=== PATIENT | female | born 1950 | race Caucasian/White ===

== ENCOUNTER → 2016-10-29 | Outpatient (CLI) | payer OTHER, MEDICARE ==
[~2016-10-29] MED LIST: ATEN-173 PO; LEVO112T2 PO
== END | disposition home or self-care (01) ==
LOC: C.PAPS 14:11
PROVIDERS: ATTEND Obstetrics & Gynecology
DX: Z12.4 Encounter for screening for malignant neoplasm of cervix (principal)

== ENCOUNTER → 2016-11-12 | Outpatient (CLI) | payer OTHER, MEDICARE ==
--- NOTE | 2016-11-12 17:12 | MAMMOGRAPHY REPORT ---
BILATERAL DIGITAL SCREENING MAMMOGRAM TOMOSYNTHESIS WITH CAD: 11/12/2016 CLINICAL HISTORY: Routine screening. Patient has no complaints. TECHNIQUE: Breast tomosynthesis in addition to standard 2D mammography was performed. Current study was also evaluated with a Computer Aided Detection (CAD) system. COMPARISON: Comparison is made to exams dated: 10/31/2015 mammogram, 06/02/2014 mammogram, 04/20/2013 mammogram, 11/13/2015 ultrasound, 02/27/2012 mammogram, and 01/27/2011 mammogram - [facility]. BREAST COMPOSITION: The tissue of both breasts is heterogeneously dense, which may obscure small ma sses. FINDINGS: There are stable benign-appearing microcalcifications within the right breast. A right ML O asymmetry in the superior posterior breast is no longer identified, confirming normal overlapping tissue. No new suspicious mass, architectural distortion or cluster of microcalcifications is seen. IMPRESSION: ACR BI-RADS CATEGORY 1: NEGATIVE There is no mammographic evidence of malignancy. A 1 year screening mammogram is recommended. The p atient will receive written notification of the results. Approximately 10% of breast cancers are not detected with mammography. A negative mammographic repor t should not delay biopsy if a clinically suggestive mass is present. Maame Woods M.D. ay/:11/12/2016 17:05:34 Library Aide: Urmila COLLAZO)(M), [facility] letter sent: Normal 1/2 BI-RADS Code: ACR BI-RADS Category 1: Negative
== END | disposition home or self-care (01) ==
LOC: C.MAMM 13:02
PROVIDERS: ATTEND Obstetrics & Gynecology
DX: Z12.31 Encounter for screening mammogram for malignant neoplasm of breast (principal)

== ENCOUNTER 2017-05-31 12:00 | Emergency (ER) | payer OTHER, MEDICARE ==
[~2017-05-31] VITALS: Ht 167.6 cm; Wt 62.7 kg
[2017-05-31 12:02] VITALS: Ht 167.6 cm; Wt 62.7 kg
[2017-05-31] MEDS ORDERED: SODIUM CHLORIDE 0.9% 1000ML 500 ML IV STA (12:25)
[2017-05-31] MEDS ORDERED: SODIUM CHLORIDE 0.9% 1000ML 1,000 ML IV STA (12:25)
[2017-05-31 13:17] LABS: BASO % 0.1 %; BASO ABS # 0.01 K/uL (0-0.2); COMPLETE YES; EOS % 0.1 %; IG% 0.5 %; LYMPH % 5.1 %; LYMPH ABS # 0.56 K/uL (1.2-3.4); MEAN CELL VOLUME 91.5 fL (80-100); MEAN PLATELET VOLUME 11.3 fL (7.4-10.4); MONO % 4.7 %; NEUT % 89.5 %; PLATELET COUNT 196 K/uL (130-400); RED BLOOD COUNT 4.37 M/uL (4.2-5.4); WHITE BLOOD COUNT 10.92 K/uL (4.8-10.8)
[2017-05-31 13:37] LABS: BUN/CREATININE RATIO 17.2 (10-20); CALCIUM 8.9 mg/dl (8.5-10.1); CREATININE 0.72 mg/dl (0.60-1.20); POTASSIUM 3.7 mmol/L (3.5-5.1)
[2017-05-31 13:38] LABS: URINE APPEARANCE CLOUDY (CLEAR); URINE COLOR DK YELLOW; URINE EPITHELIAL CELL AUTO >30 /lpf (0-5); URINE NITRITE NEG (NEG); URINE SPECIFIC GRAVITY 1.022 (1.000-1.030); UROBILINOGEN NEG (NEG)
--- NOTE | 2017-05-31 13:38 | DIAGNOSTIC IMAGING REPORT ---
ABDOMEN 2VIEW W/PA CHEST RTN HISTORY: 67 years-old Female acute abdominal pain. COMPARISON: None available. TECHNIQUE: Frontal view of the chest with erect and supine views of the abdomen FINDINGS: Cardiac silhouette is upper limits of normal. No pneumothorax, large pleural effusion or focal airspace consolidation. There is mild blunting of the costophrenic angles suggesting atelectasis or trace effusions. Subsegmental atelectasis or scarring involve the lateral left lung base. There is atherosclerosis of the aorta. Moderate volume of pneumoperitoneum is seen. The bowel gas pattern is nonobstructive. No portal venous gas or pneumatosis identified. There is moderate volume of formed stool within the rectosigmoid. No urolithiasis or fracture seen. Degenerative changes involve the hips and lower lumbar spine. IMPRESSION: 1. Moderate volume of pneumoperitoneum is present without evidence of bowel obstruction compatible with perforated viscus without history of recent surgery. Further evaluation with emergent contrast-enhanced CT abdomen and pelvis recommended to further evaluate. 2. No acute cardiopulmonary process. The above report was generated using voice recognition software. It may contain grammatical, syntax or spelling errors. Electronically signed by: Ariel Chavez M.D. 05/31/2017 1:37 PM Dictated Date/Time: 05/31/2017 1:33 PM
[2017-05-31] MEDS ORDERED: PIPERACILLIN/TAZOBACTAM 4.5 GM/100ML D5W IV STA (13:44)
[2017-05-31 13:45] LABS: MANUAL MICROSCOPIC REQUIRED? NO; REVIEW REQ? YES; URINE BILIRUBIN NEG (NEG)
--- NOTE | 2017-05-31 13:47 | EMERGENCY ROOM VISIT NOTE ---
ED Visit Note First contact with patient: 12:07 The patient was seen and examined with Margie Irby. I agree with the history , physical and findings. Please see the note for disposition and details. The patient has perforated diverticulitis with abscess. Antibiotics administered. Consultation made with general surgery. The patient was evaluated and it was felt that transfer would be in best interest of the patient. [facility] was contacted. The patient was accepted. The patient was transferred for further management.
[2017-05-31 13:48] LABS: ALB/GLOB RATIO 0.7 (0.9-2); THYROID STIMULATING HORMONE 0.489 uIu/ml (0.300-4.500)
[2017-05-31 13:51] LABS: URINE MUCUS PRESENT (NONE PRSENT)
[2017-05-31] MEDS ORDERED: OPTIRAY 320 IV PRN (14:00)
--- NOTE | 2017-05-31 14:49 | DIAGNOSTIC IMAGING REPORT ---
ABD/PELVIS IV CONTRAST ONLY HISTORY: 67 years-old Female pneumoperitoneum identified on comparison radiographs COMPARISON: Radiograph 05/31/2017 TECHNIQUE: Multiple axial CT images of the abdomen and pelvis were obtained utilizing 93 mL Optiray 320. A dose lowering technique was used consistent with the principals of BEATA. FINDINGS: There is mild dependent bibasilar atelectasis. The imaged cardiac chambers are unremarkable. The liver, spleen, pancreas and right adrenal gland are unremarkable. There is mild nodular thickening of the left adrenal gland suggesting hyperplasia. Gallbladder is unremarkable. Kidneys and left ureter are unremarkable. Mild dilation of the distal right ureter, likely reactive from pelvic disease as described below. Urinary bladder is unremarkable. Uterus appears normal in size. There is extensive pneumoperitoneum identified throughout the abdomen and pelvis. There is mild atherosclerotic plaquing of the abdominal aorta. Scattered nonenlarged nonspecific periaortic adenopathy is seen. There is no bowel obstruction. Moderate volume of formed stool involves the sigmoid colon. There is limited evaluation of the bowel without oral contrast. There are extensive inflammatory changes with trace ascites and mesenteric edema throughout the lower abdomen and pelvis which is centered about the mid sigmoid colon which demonstrates wall thickening with multiple colonic diverticula. There is a focal collection containing air, fluid and complex debris within the right hemipelvis, 5.5 x 3.6 x 4.0 cm suggesting abscess. Additional locules of the abscess are seen on image 268 and 298 for example Air-fluid leveling within the cecum and several loops of terminal ileum are likely reactive ileus formation. Appendix noted on image 260 of the axial series and appears normal. Soft tissues are unremarkable. Bones appear intact. There is mild convex left curvature of the lumbar spine. 6 mm anterolisthesis L3 on L4 is likely secondary to background severe facet arthropathy. IMPRESSION: 1. Extensive pneumoperitoneum with findings most compatible with acute complicated sigmoid diverticulitis with multiloculated abscess of the right lower pelvis measuring up to 5.5 cm. Evaluation of the bowel is somewhat limited without the use of oral contrast. 2. Reactive ileus involves the distal ileum without obstruction. 3. No pneumatosis identified. 4. Normal CT appearance of the appendix. The above report was generated using voice recognition software. It may contain grammatical, syntax or spelling errors. Electronically signed by: Ariel Chavez M.D. 05/31/2017 2:48 PM Dictated Date/Time: 05/31/2017 2:33 PM
--- NOTE | 2017-05-31 15:34 | Surgery Consultation ---
Consultation Date of Consultation: May 31, 2017. Attending Physician: Reason for Consultation: Pneumoperitoneum, abdominal pain History of Present Illness Cecily South is a 67 year old woman with hypertension and hypothyroidism who presents to the ED with 3 days of abdominal pain. Patient states she has been out of town with her family, and has been eating a different diet than her usual. Also states she hasn't been drinking as much fluid, and hasn't had a BM in approximately 5 days. She notes she had transient chills on , which resolved. On Thursday, she began having crampy low abdominal pain, which was reported to be 10/10 at its worst; the pain eventually improved to about a 5/10 , but did not resolve. The pain has been continuous, and she therefore presented to the ED for evaluation. Denies any nausea or vomiting associated with the pain. She has been tolerating small amounts of food over the past few days, but notes a low appetite. Patient denies headache, vision changes, chest pain, SOB, recent weight loss / gain, dysuria or urinary problems, melena / hematochezia, pain / numbness / swelling / tingling in extremities. She has never had any abdominal or thoracic operations in the past. Surgery was consulted by the ER after pneumoperitoneum was seen on the CXR. On exam, patient is lying comfortably in bed, vitals stable and normal. Abdomen is somewhat distended, but soft, and only mildly tender to palpation; no rebound / guarding. Last colonoscopy was approximately 9 years ago, reported by the patient to be normal; she is due for another next year. States she does not ever remember being told she has diverticulosis, has never had any episodes of diverticulitis. She has never had an EGD. She has never had heartburn or symptoms of GERD. She takes an Aspirin 81mg daily, but no other NSAID use reported. Denies smoking history, occasional alcohol use. Past Medical/Surgical History Medical History: Hypertension Hypothyroidism Surgical History: No thoracic or abdominal operations Family History Heart disease Hypertension Social History Smoking Status: Never Smoker Marital Status: Housing Status: lives alone Occupation Status: unemployed Allergies Coded Allergies: Prednisone (Verified Allergy, Unknown, ., 05/31/17) Sulfa Antibiotics (Verified Allergy, Unknown, ., 05/31/17) Home Medications Scheduled Atenolol (Tenormin), 25 MG PO QPM Levothyroxine Sodium (Synthroid), 112 MCG PO DAILY Current Inpatient Medications Current Inpatient Medications Medications (Trade) Dose Ordered Sig/Gautam Route Start Time Stop Time Status Last Admin Dose Admin Sodium Chloride 1,000 ml @ 250 mls/hr Q4H STAT IV 05/31/17 12:25 05/31/17 16:24 05/31/17 12:25 250 MLS/HR Ioversol (Optiray 320) 111 ml UD PRN IV 05/31/17 14:00 06/04/17 13:59 Review of Systems Constitutional: + chills (3 days ago, none recent), + fatigue, No fever Eyes: No worsening of vision, No eye pain Respiratory: No cough, No shortness of breath, No dyspnea on exertion Cardiovascular: No chest pain Abdomen: + pain, + constipation, No nausea, No vomiting Musculoskeletal: No swelling Genitourinary - Female: No dysuria, No urinary frequency, No urinary urgency Physical Exam Date Time Temp Pulse Resp B/P (MAP) Pulse Ox O2 Delivery O2 Flow Rate FiO2 05/31/17 14:35 86 05/31/17 14:33 89 16 142/85 96 05/31/17 12:02 36.9 83 16 129/81 96 Room Air General Appearance: WD/WN, no apparent distress Head: normocephalic Eyes: normal inspection Neck: supple Respiratory/Chest: lungs clear, normal breath sounds, no respiratory distress Cardiovascular: regular rate, rhythm Abdomen/GI: soft, + tenderness (mild tenderness to palpation in RLQ), + distended Skin: normal color, warm/dry, no rash Laboratory Results Last 24 Hours Test 05/31/17 12:50 White Blood Count 10.92 K/uL Red Blood Count 4.37 M/uL Hemoglobin 14.4 g/dL Hematocrit 40.0 % Mean Corpuscular Volume 91.5 fL Mean Corpuscular Hemoglobin 33.0 pg Mean Corpuscular Hemoglobin Concent 36.0 g/dl Platelet Count 196 K/uL Mean Platelet Volume 11.3 fL Neutrophils (%) (Auto) 89.5 % Lymphocytes (%) (Auto) 5.1 % Monocytes (%) (Auto) 4.7 % Eosinophils (%) (Auto) 0.1 % Basophils (%) (Auto) 0.1 % Neutrophils # (Auto) 9.78 K/uL Lymphocytes # (Auto) 0.56 K/uL Monocytes # (Auto) 0.51 K/uL Eosinophils # (Auto) 0.01 K/uL Basophils # (Auto) 0.01 K/uL RDW Standard Deviation 42.8 fL RDW Coefficient of Variation 12.6 % Immature Granulocyte % (Auto) 0.5 % Immature Granulocyte # (Auto) 0.05 K/uL Urine Color DK YELLOW Urine Appearance CLOUDY Urine pH 6.0 Urine Specific [place] 1.022 Urine Protein 2+ Urine Glucose (UA) NEG Urine Ketones 1+ Urine Occult Blood 1+ Urine Nitrite NEG Urine Bilirubin NEG Urine Urobilinogen NEG Urine Leukocyte Esterase MODERATE Urine WBC (Auto) >30 /hpf Urine RBC (Auto) 5-10 /hpf Urine Hyaline Casts (Auto) 1-5 /lpf Urine Epithelial Cells (Auto) >30 /lpf Urine Bacteria (Auto) 1+ Urine Pathogenic Casts /lpf Urine Mucus PRESENT Sodium Level 132 mmol/L Potassium Level 3.7 mmol/L Chloride Level 97 mmol/L Carbon Dioxide Level 25 mmol/L Anion Gap 10.0 mmol/L Blood Urea Nitrogen 12 mg/dl Creatinine 0.72 mg/dl Est Creatinine Clear Calc Drug Dose 70.0 ml/min Estimated GFR () 99.7 Estimated GFR (Non- 86.1 BUN/Creatinine Ratio 17.2 Random Glucose 106 mg/dl Calcium Level 8.9 mg/dl Total Bilirubin 0.6 mg/dl Aspartate Amino Transf (AST/SGOT) 11 U/L Alanine Aminotransferase (ALT/SGPT) 11 U/L Alkaline Phosphatase 93 U/L Total Protein 7.2 gm/dl Albumin 3.0 gm/dl Globulin 4.2 gm/dl Albumin/Globulin Ratio 0.7 Lipase 78 U/L Thyroid Stimulating Hormone (TSH) 0.489 uIu/ml 05/31/17 CXR: IMPRESSION: 1. Moderate volume of pneumoperitoneum is present without evidence of bowel obstruction compatible with perforated viscus without history of recent surgery. Further evaluation with emergent contrast-enhanced CT abdomen and pelvis recommended to further evaluate. 2. No acute cardiopulmonary process. 05/31/17 CT Abd / Pelvis with IV contrast (no PO): IMPRESSION: 1. Extensive pneumoperitoneum with findings most compatible with acute complicated sigmoid diverticulitis with multiloculated abscess of the right lower pelvis measuring up to 5.5 cm. Evaluation of the bowel is somewhat limited without the use of oral contrast. 2. Reactive ileus involves the distal ileum without obstruction. 3. No pneumatosis identified. 4. Normal CT appearance of the appendix. Assessment & Plan Cecily South is a 67 year old woman with hypertension and hypothyroidism who presents with several days of low abdominal pain, and CT scan images consistent with diverticulitis with a 5.5cm abscess. She is hemodynamically stable and normal on room air. No leukocytosis, all labs are within normal limits. Abdomen is distended, but soft, only mildly tender to palpation in the RLQ, and no rebound / guarding. -No emergent surgical intervention indicated at this time, given hemodynamic and clinical stability; does need drainage of the abscess. -Recommend transfer to other facility for IR drainage of the pelvic abscess, patient prefers [facility] in [place] -Recommend broad coverage of IV antibiotics -Will discuss arrangement of transfer with ED Debi De La Fuente MD 05/31/17
--- NOTE | 2017-05-31 15:52 | EMERGENCY ROOM VISIT NOTE ---
History First contact with patient: 12:07 Chief Complaint: GI ASSESSMENT Stated Complaint: ABD PAIN, CONSTIPATION Nursing Triage Summary: Abd pain. Constipated x4 days per pt. Seen at [facility], sent here for evaluation. History of Present Illness Patient is a 67 year-old white female with past medical history significant for hypothyroidism and hypertension presents to the emergency department for evaluation of lower abdominal pain, pressure, bloating and constipation 4 days. Patient reports that she was out of town with family for about a week, returned about 5 days ago. She admits to not eating well, nor drinking as much fluid as she usually does while she was traveling. She believes that her last bowel movement was Thursday prior to returning home. She states that it was small, nonbloody and non-melanotic. , 4 days ago, she began to feel chills and experience some lower abdominal pain. She states the pain was crampy in nature, and at its worst she would've rated it a 10/10 and Thursday. She denies nausea or vomiting, but does admit to anorexia. She feels like she is dehydrated, as she notes that her urine is dark and she has had decreased urine output. The severe pains have lessened, and she presently only complains of some lower abdominal pressure, right greater than left, which she rates a 5/10. She continues to feel bloated. She did not try taking any medications, nor perform any interventions for her symptoms. She denies any dysuria, frequency, urgency or hematuria. She has never had any abdominal surgeries. Last colonoscopy was about 9 years ago, and was clear per the patient. She denies any back or flank pain. No chest pain or shortness of breath. No recent changes in her medications. She was seen at [facility], and sent to the emergency department for further evaluation. Review of Systems Review of systems as per HPI. All other systems reviewed were negative. 10 systems reviewed. Past Medical/Surgical History Medical Problems: (1) Head injury (2) Hypertension (3) Hypothyroidism (4) Laceration Electronic medical records are reviewed and summarized as above/below. See Problem List. Family History Heart disease Hypertension Social History Smoking Status: Never Smoker Alcohol Use: occasionally Marital Status: Housing Status: lives alone Occupation Status: retired Current/Historical Medications Scheduled Atenolol (Tenormin), 25 MG PO QPM Levothyroxine Sodium (Synthroid), 112 MCG PO DAILY Physical Exam Vital Signs Date Time Temp Pulse Resp B/P (MAP) Pulse Ox O2 Delivery O2 Flow Rate FiO2 05/31/17 16:01 134/81 05/31/17 16:00 84 36 95 05/31/17 15:31 136/83 05/31/17 15:30 85 22 95 05/31/17 15:01 139/80 05/31/17 15:00 82 31 95 05/31/17 14:40 140/74 05/31/17 14:35 86 05/31/17 14:33 89 16 142/85 96 05/31/17 14:30 87 22 05/31/17 14:29 142/85 05/31/17 12:02 36.9 83 16 129/81 96 Room Air Physical Exam CONSTITUTIONAL: Patient is a well-appearing 67-year-old white female who is awake and alert and in no acute distress. CARDIOVASCULAR: Regular rate and rhythm, with normal S1 and S2, no murmur or gallop or rub is heard. No carotid bruits auscultated. No JVD. Peripheral pulses easily palpable. RESPIRATORY: Breath sounds equal and clear to auscultation without wheezes, rales, or rhonchi heard. Full and equal chest expansion without accessory muscle use or retractions. ABDOMEN: Bowel sounds are present, abdomen is distended, tympanic to percussion throughout, she is tender in the bilateral lower quadrants, right greater than left, with voluntary guarding. RECTAL EXAM: No masses or tenderness, small amount of hard stool in the rectal vault. Stool is brown and Hemoccult negative. No fecal impaction appreciated. INTEGUMENTARY: No lesions or rash, normal skin turgor. LYMPH: No lymphadenopathy. Medical Decision & Procedures ER Provider Diagnostic Interpretation: ABD/PELVIS IV CONTRAST ONLY HISTORY: 67 years-old Female pneumoperitoneum identified on comparison radiographs COMPARISON: Radiograph 05/31/2017 TECHNIQUE: Multiple axial CT images of the abdomen and pelvis were obtained utilizing 93 mL Optiray 320. A dose lowering technique was used consistent with the principals of BEATA. FINDINGS: There is mild dependent bibasilar atelectasis. The imaged cardiac chambers are unremarkable. The liver, spleen, pancreas and right adrenal gland are unremarkable. There is mild nodular thickening of the left adrenal gland suggesting hyperplasia. Gallbladder is unremarkable. Kidneys and left ureter are unremarkable. Mild dilation of the distal right ureter, likely reactive from pelvic disease as described below. Urinary bladder is unremarkable. Uterus appears normal in size. There is extensive pneumoperitoneum identified throughout the abdomen and pelvis. There is mild atherosclerotic plaquing of the abdominal aorta. Scattered nonenlarged nonspecific periaortic adenopathy is seen. There is no bowel obstruction. Moderate volume of formed stool involves the sigmoid colon. There is limited evaluation of the bowel without oral contrast. There are extensive inflammatory changes with trace ascites and mesenteric edema throughout the lower abdomen and pelvis which is centered about the mid sigmoid colon which demonstrates wall thickening with multiple colonic diverticula. There is a focal collection containing air, fluid and complex debris within the right hemipelvis, 5.5 x 3.6 x 4.0 cm suggesting abscess. Additional locules of the abscess are seen on image 268 and 298 for example Air-fluid leveling within the cecum and several loops of terminal ileum are likely reactive ileus formation. Appendix noted on image 260 of the axial series and appears normal. Soft tissues are unremarkable. Bones appear intact. There is mild convex left curvature of the lumbar spine. 6 mm anterolisthesis L3 on L4 is likely secondary to background severe facet arthropathy. IMPRESSION: 1. Extensive pneumoperitoneum with findings most compatible with acute complicated sigmoid diverticulitis with multiloculated abscess of the right lower pelvis measuring up to 5.5 cm. Evaluation of the bowel is somewhat limited without the use of oral contrast. 2. Reactive ileus involves the distal ileum without obstruction. 3. No pneumatosis identified. 4. Normal CT appearance of the appendix. ABDOMEN 2VIEW W/PA CHEST RTN HISTORY: 67 years-old Female acute abdominal pain. COMPARISON: None available. TECHNIQUE: Frontal view of the chest with erect and supine views of the abdomen FINDINGS: Cardiac silhouette is upper limits of normal. No pneumothorax, large pleural effusion or focal airspace consolidation. There is mild blunting of the costophrenic angles suggesting atelectasis or trace effusions. Subsegmental atelectasis or scarring involve the lateral left lung base. There is atherosclerosis of the aorta. Moderate volume of pneumoperitoneum is seen. The bowel gas pattern is nonobstructive. No portal venous gas or pneumatosis identified. There is moderate volume of formed stool within the rectosigmoid. No urolithiasis or fracture seen. Degenerative changes involve the hips and lower lumbar spine. IMPRESSION: 1. Moderate volume of pneumoperitoneum is present without evidence of bowel obstruction compatible with perforated viscus without history of recent surgery. Further evaluation with emergent contrast-enhanced CT abdomen and pelvis recommended to further evaluate. 2. No acute cardiopulmonary process. ABD/PELVIS IV CONTRAST ONLY HISTORY: 67 years-old Female pneumoperitoneum identified on comparison radiographs COMPARISON: Radiograph 05/31/2017 TECHNIQUE: Multiple axial CT images of the abdomen and pelvis were obtained utilizing 93 mL Optiray 320. A dose lowering technique was used consistent with the principals of BEATA. FINDINGS: There is mild dependent bibasilar atelectasis. The imaged cardiac chambers are unremarkable. The liver, spleen, pancreas and right adrenal gland are unremarkable. There is mild nodular thickening of the left adrenal gland suggesting hyperplasia. Gallbladder is unremarkable. Kidneys and left ureter are unremarkable. Mild dilation of the distal right ureter, likely reactive from pelvic disease as described below. Urinary bladder is unremarkable. Uterus appears normal in size. There is extensive pneumoperitoneum identified throughout the abdomen and pelvis. There is mild atherosclerotic plaquing of the abdominal aorta. Scattered nonenlarged nonspecific periaortic adenopathy is seen. There is no bowel obstruction. Moderate volume of formed stool involves the sigmoid colon. There is limited evaluation of the bowel without oral contrast. There are extensive inflammatory changes with trace ascites and mesenteric edema throughout the lower abdomen and pelvis which is centered about the mid sigmoid colon which demonstrates wall thickening with multiple colonic diverticula. There is a focal collection containing air, fluid and complex debris within the right hemipelvis, 5.5 x 3.6 x 4.0 cm suggesting abscess. Additional locules of the abscess are seen on image 268 and 298 for example Air-fluid leveling within the cecum and several loops of terminal ileum are likely reactive ileus formation. Appendix noted on image 260 of the axial series and appears normal. Soft tissues are unremarkable. Bones appear intact. There is mild convex left curvature of the lumbar spine. 6 mm anterolisthesis L3 on L4 is likely secondary to background severe facet arthropathy. IMPRESSION: 1. Extensive pneumoperitoneum with findings most compatible with acute complicated sigmoid diverticulitis with multiloculated abscess of the right lower pelvis measuring up to 5.5 cm. Evaluation of the bowel is somewhat limited without the use of oral contrast. 2. Reactive ileus involves the distal ileum without obstruction. 3. No pneumatosis identified. 4. Normal CT appearance of the appendix. Laboratory Results 05/31/17 12:50 Red Blood Count 4.37, Mean Corpuscular Volume 91.5, Mean Corpuscular Hemoglobin 33.0, Mean Corpuscular Hemoglobin Concent 36.0, Mean Platelet Volume 11.3, Neutrophils (%) (Auto) 89.5, Lymphocytes (%) (Auto) 5.1, Monocytes (%) (Auto) 4.7, Eosinophils (%) (Auto) 0.1, Basophils (%) (Auto) 0.1, Neutrophils # (Auto) 9.78, Lymphocytes # (Auto) 0.56, Monocytes # (Auto) 0.51, Eosinophils # (Auto) 0.01, Basophils # (Auto) 0.01 05/31/17 12:50 Test 05/31/17 12:50 White Blood Count 10.92 K/uL (4.8-10.8) Red Blood Count 4.37 M/uL (4.2-5.4) Hemoglobin 14.4 g/dL (12.0-16.0) Hematocrit 40.0 % (37-47) Mean Corpuscular Volume 91.5 fL (80-100) Mean Corpuscular Hemoglobin 33.0 pg (25-34) Mean Corpuscular Hemoglobin Concent 36.0 g/dl (32-36) Platelet Count 196 K/uL (130-400) Mean Platelet Volume 11.3 fL (7.4-10.4) Neutrophils (%) (Auto) 89.5 % Lymphocytes (%) (Auto) 5.1 % Monocytes (%) (Auto) 4.7 % Eosinophils (%) (Auto) 0.1 % Basophils (%) (Auto) 0.1 % Neutrophils # (Auto) 9.78 K/uL (1.4-6.5) Lymphocytes # (Auto) 0.56 K/uL (1.2-3.4) Monocytes # (Auto) 0.51 K/uL (0.11-0.59) Eosinophils # (Auto) 0.01 K/uL (0-0.5) Basophils # (Auto) 0.01 K/uL (0-0.2) RDW Standard Deviation 42.8 fL (36.4-46.3) RDW Coefficient of Variation 12.6 % (11.5-14.5) Immature Granulocyte % (Auto) 0.5 % Immature Granulocyte # (Auto) 0.05 K/uL (0.00-0.02) Urine Color DK YELLOW Urine Appearance CLOUDY (CLEAR) Urine pH 6.0 (4.5-7.5) Urine Specific [place] 1.022 (1.000-1.030) Urine Protein 2+ (NEG) Urine Glucose (UA) NEG (NEG) Urine Ketones 1+ (NEG) Urine Occult Blood 1+ (NEG) Urine Nitrite NEG (NEG) Urine Bilirubin NEG (NEG) Urine Urobilinogen NEG (NEG) Urine Leukocyte Esterase MODERATE (NEG) Urine WBC (Auto) >30 /hpf (0-5) Urine RBC (Auto) 5-10 /hpf (0-4) Urine Hyaline Casts (Auto) 1-5 /lpf (0-5) Urine Epithelial Cells (Auto) >30 /lpf (0-5) Urine Bacteria (Auto) 1+ (NEG) Urine Pathogenic Casts /lpf (0) Urine Mucus PRESENT (NONE PRSENT) Anion Gap 10.0 mmol/L (3-11) Est Creatinine Clear Calc Drug Dose 70.0 ml/min Estimated GFR () 99.7 Estimated GFR (Non- 86.1 BUN/Creatinine Ratio 17.2 (10-20) Calcium Level 8.9 mg/dl (8.5-10.1) Total Bilirubin 0.6 mg/dl (0.2-1) Aspartate Amino Transf (AST/SGOT) 11 U/L (15-37) Alanine Aminotransferase (ALT/SGPT) 11 U/L (12-78) Alkaline Phosphatase 93 U/L (45-117) Total Protein 7.2 gm/dl (6.4-8.2) Albumin 3.0 gm/dl (3.4-5.0) Globulin 4.2 gm/dl (2.5-4.0) Albumin/Globulin Ratio 0.7 (0.9-2) Lipase 78 U/L (73-393) Thyroid Stimulating Hormone (TSH) 0.489 uIu/ml (0.300-4.500) Medications Administered Medications (Trade) Dose Ordered Sig/Gautam Route Start Time Stop Time Status Last Admin Dose Admin Sodium Chloride 500 ml @ 999 mls/hr Q31M STAT IV 05/31/17 12:25 05/31/17 12:55 DC 05/31/17 12:25 999 MLS/HR Sodium Chloride 1,000 ml @ 250 mls/hr Q4H STAT IV 05/31/17 12:25 05/31/17 16:24 05/31/17 12:25 250 MLS/HR Piperacillin Sod/ Tazobactam Sod (Zosyn Iv) 4.5 gm NOW STAT IV 05/31/17 13:44 05/31/17 13:45 DC 05/31/17 13:44 4.5 GM ED Course The patient was seen and assessed as above. Her old records were reviewed. IV lock was initiated and she was hydrated with normal saline solution. She declined any pain or nausea medications while in the emergency department. Laboratory studies were collected including CBC with differential, CMP, TSH, lipase and urinalysis. Acute abdominal series was obtained. Laboratory studies noted a slightly elevated white count at 10,900 with left shift. H&H is 14 and 40, platelet count 196,000. No significant electrolyte or renal function abnormalities noted. Liver functions are not elevated. Lipase is normal. TSH is indicative of a euthyroid state. Urinalysis notes 1+ ketones, 1+ occult blood, moderate leukocyte esterase, greater than 30 WBCs and 5-10 RBCs with greater than 30 epithelial cells and mucus (more likely contamination from abscess rather than UTI). Acute abdominal series noted moderate volume of pneumoperitoneum without evidence for bowel obstruction, consistent with perforated viscus. CT scan was recommended in follow-up. All laboratory and diagnostic imaging studies were reviewed with attending physician, and discussed with the patient at length. The patient was given Zosyn 4.5 g IV and went urgently to CT for CT scan of the abdomen and pelvis with IV contrast. Surgical consult was placed with Dr. De La Fuente, who evaluated the patient the Emergency Department, pending CT scan results. CT was consistent with extensive pneumoperitoneum with findings most compatible with acute complicated sigmoid diverticulitis with a multiloculated abscess of the right lower pelvis measuring up to 5 cm. Reactive ileus without obstruction was noted. Appendix was unremarkable. CT scan findings were reviewed with the patient by Dr. De La Fuente and myself. Given the size of the abscess, transfer to a tertiary care center with interventional radiology capabilities was recommended. The patient prefers to [facility]. Transfer center was contacted, and Dr. De La Fuente reviewed the patient with surgery on-call, Dr. Bhardwaj, who has accepted the patient in transfer. Consent to transfer and transfer orders were completed. The patient remained hemodynamically stable while awaiting transfer arrangements. She will be transferred by [facility]. Medical Decision Differential diagnoses included constipation, fecal impaction, diverticulitis, bowel obstruction, perforation, abscess, UTI, pyelonephritis, mass or malignancy , appendicitis, dehydration, among others. Medication Reconcilliation Current Medication List: was personally reviewed by wa Blood Pressure Screening Patient's blood pressure: Normal blood pressure Blood pressure disposition: Did not require urgent referral Impression Primary Impression: Diverticulitis of intestine with perforation and abscess Departure Information Referrals Reta Serrano M.D. (PCP) Patient Instructions My [facility] Problem Qualifiers Primary Impression: Diverticulitis of intestine with perforation and abscess Diverticulitis site: large intestine Diverticulitis bleeding: without bleeding Qualified Codes: K57.20 - Diverticulitis of large intestine with perforation and abscess without bleeding
[2017-05-31 19:42] VITALS: BP 126/82; PULSE 87; TEMP 36.9; O2SAT 94
== END 2017-05-31 19:41 | disposition short-term general hospital (02) ==
LOC: C.EDB 12:01 → C.EDC 19:41
DX: K57.80 Diverticulitis of intestine, part unspecified, with perforation and abscess without bleeding (principal); I10 Essential (primary) hypertension; E03.9 Hypothyroidism, unspecified; Z82.49 Family history of ischemic heart disease and other diseases of the circulatory system

== ENCOUNTER → 2018-01-07 | Outpatient (CLI) | payer OTHER, MEDICARE ==
--- NOTE | 2018-01-08 15:36 | MAMMOGRAPHY REPORT ---
BILATERAL DIGITAL SCREENING MAMMOGRAM TOMOSYNTHESIS WITH CAD: 01/07/2018 CLINICAL HISTORY: Routine screening. TECHNIQUE: Breast tomosynthesis in addition to standard 2D mammography was performed. Current study was also evaluated with a Computer Aided Detection (CAD) system. COMPARISON: Comparison is made to exams dated: 11/12/2016 mammogram, 10/31/2015 mammogram, 06/02/2014 ma mmogram, 04/20/2013 mammogram, 02/27/2012 mammogram, and 01/27/2011 mammogram - [facility] nter. BREAST COMPOSITION: The tissue of both breasts is heterogeneously dense, which may obscure small mas ses. FINDINGS: No suspicious masses, calcifications, or areas of architectural distortion are noted in ei ther breast. There has been no significant interval change compared to prior exams. IMPRESSION: ACR BI-RADS CATEGORY 1: NEGATIVE There is no mammographic evidence of malignancy. A 1 year screening mammogram is recommended. The pa tient will receive written notification of the results. Approximately 10% of breast cancers are not detected with mammography. A negative mammographic report should not delay biopsy if a clinically suggestive mass is present. Mel Ness M.D. /:01/07/2018 14:30:34 Fundraising Consultant: Queta GUAN(Eliud)(Kendrick), [facility] letter sent: Normal 1/2 BI-RADS Code: ACR BI-RADS Category 1: Negative
== END | disposition home or self-care (01) ==
LOC: C.MAMM 13:43
PROVIDERS: ATTEND Obstetrics & Gynecology
DX: Z12.31 Encounter for screening mammogram for malignant neoplasm of breast (principal)